=== PATIENT | male | born 1935 | race Caucasian/White ===

== ENCOUNTER 2018-02-10 13:50 | Inpatient (IN) | payer MEDICARE, SELFPAY ==
--- NOTE | 2018-02-10 13:14 | EKG12_ITS ---
Test Reason : WEAKNESS Blood Pressure : / mmHG Vent. Rate : 062 BPM Atrial Rate : 062 BPM P-R Int : 302 ms QRS Dur : 090 ms QT Int : 422 ms P-R-T Axes : 000 043 048 degrees QTc Int : 428 ms Sinus rhythm with 1st degree A-V block Septal infarct , age undetermined Abnormal ECG No previous ECGs available Confirmed by JOSAFAT RIVERA ([id number]), commissioning editor TAHMINA MIKE ([id number] on 02/25/2018 3:00:35 PM Referred By: Jhonny Franklin Confirmed By:JOSAFAT RIVERA
--- NOTE | 2018-02-10 14:15 | RAD_ITS ---
STUDY: X-RAY CHEST REASON FOR EXAM: Male, 82 years old. Shortness of breath TECHNIQUE: Single AP portable view of the chest. COMPARISON: None. FINDINGS: Diffuse mild interstitial edema. No consolidation or effusion. There is no demonstrated pleural abnormality. Sternal cerclage wires are present from a prior sternotomy. Mild cardiomegaly. Normal mediastinum and chapin. Normal visualized pulmonary arteries. Normal visualized aortic arch and descending thoracic aorta. Normal visualized thoracic spine. Normal visualized ribs, clavicles, and shoulders. There is no demonstrated abnormality of the visualized soft tissue structures of the upper abdomen. RAD/Chest 1 View (Portable) IMPRESSION: Vascular congestion throughout Electronically Signed: Mickey Spann DO at 14:52 EDT Tel , Service support ,
--- NOTE | 2018-02-10 17:40 | DT_ITS ---
This patient was seen during an EMR downtime February 04, 2018 - February 11, 2018. This patient may have a combination of paper and electronic documentation or all paper documentation. All documentation is viewable within the e-chart portion of [facility] for each patient visit.
[2018-02-11] MEDS: Heparin Injection 5,000 UNITS/ML Syringe 5000 UNITS SC ×3 (06:00→22:24)
[2018-02-11] MEDS: Aspirin 325 MG Tablet PO (08:00)
--- NOTE | 2018-02-11 09:21 | MRI_ITS ---
STUDY: MRI BRAIN WITHOUT CONTRAST REASON FOR EXAM: Male, 82 years old. rt sided weakness. TECHNIQUE: Standardized multiplanar fat and water weighted pulse sequences were obtained. COMPARISON: None. FINDINGS: There is mild cerebral atrophy with widening of the extra-axial spaces and ventricular dilatation. There are multiple white matter hyperintensities, distributed throughout the deep white matter tracts of the cerebral hemispheres, consistent with moderate chronic white matter ischemic changes. There is right cerebellar chronic lacunar infarct. There is a small area of right occipital encephalomalacia and gliosis, consistent with prior insult. There is approximately 1.5 cm right posterior and medial frontal lesion with T1 hyperintense signal suggesting intralesional hemorrhage. There is mild surrounding vasogenic edema. Additionally there is a 2.3 cm left anterior temporal lesion with minimal surrounding vasogenic edema Normal bilateral basal ganglia. Normal thalami. There is no extra-axial fluid accumulation. Normal flow voids within the major intracranial circulation suggesting patency by spin echo criteria. Normal sella turcica, pituitary gland, infundibular stalk, optic chiasm and hypothalamus. Normal tectal plate and pineal gland. Normal midbrain, morgan and medulla. Normal basal cisterns. Normal bilateral temporal bones. Normal bilateral internal auditory canals. MRI/Brain without Contrast IMPRESSION: Right frontal and left temporal lesions. Leading differential consideration is metastatic disease. Chronic right occipital infarct. N.B. : The above information has been verbally conveyed by Radha Olivera MD to [facility], [facility] Physician, on 02/11/2018 14:09:37 (ET). Electronically Signed: Radha Olivera MD at 13:06 EDT Tel , Service support , N.B. : The above information has been verbally conveyed by Radha Olivera MD to [facility], Covering Physician, on 02/11/2018 14:09:37 (ET).
[2018-02-11] MEDS: Lisinopril 10 MG Tablet 30 MG PO (10:00)
[2018-02-11] MEDS: Cyanocobalamin 500 MCG Tablet 1000 MCG PO (10:00)
[2018-02-11] MEDS: amLODIPine 5 MG Tablet PO (10:00)
[2018-02-11] MEDS: Atenolol 25 MG Tablet PO (10:00)
--- NOTE | 2018-02-11 10:38 | PCM.PN.HOSP ---
Subjective: Seen and examined The patient was admitted with hypoglycemia, recurrent fall and generalized weakness. He says he fell because of right knee gives out General: Alert, Oriented x3, Cooperative HEENT: Atraumatic, PERRLA, EOMI, Normocephalic Neck: Supple, No JVD, Negative Carotid Bruits Lungs: Clear to auscultation, Normal air movement, No rhonchi, No wheeze, No rales Cardiovascular: Regular rate, Regular Rhythm, Normal S1, Normal S2, No murmurs Abdomen: Bowel Sounds Present, Soft, Non Tender, Non-Distended Extremities: No edema, Capillary Refill Less than 3 Seconds Skin: No rashes, No breakdown Musculoskeletal: No Tenderness to Palpation of Joints or Extremities Neurological: Cranial nerves II-XII grossly intact Psych/Mental Status: Normal Affect, Appropriate Current Medications Amlodipine Besylate (Norvasc) 5 mg PO DAILY [facility] Aspirin (Aspirin) 325 mg PO DAILY@0800 [facility] Atenolol (Tenormin (Beta Jaden)) 25 mg PO DAILY [facility] Atorvastatin Calcium (Lipitor) 40 mg PO QHS [facility] Cyanocobalamin (Vitamin B12) 1,000 mcg PO DAILY [facility] Doxazosin Mesylate (Cardura) 2 mg PO QHS [facility] Heparin Sodium (Porcine) () 5,000 units SC Q8 [facility] Insulin Human Lispro (Humalog Kwikpen (Bkc)) 0 unit SQ ACHS [facility] PRN Reason: Protocol Lisinopril (Zestril) 30 mg PO DAILY [facility] Medical Necessity - Tobacco Use Smoking Status: Current every day smoker Assessment/Plan This 82-year-old gentleman who was admitted with generalized weakness and fall, blood sugar in the ER was 35 mg percent. Patient has type 1 diabetes mellitus. Vitals in the ER was stable. Patient has history of recurrent fall. 1. Hypoglycemia most probably from insulin with history of type 1 diabetes mellitus : In ED, Accu-Chek was 35 mg/dL. His blood sugar in BMP 137. Patient was on NPH and regular insulin at home. 2. Multiple brain lesions/mass: MRI brain was done for right-sided weakness. Is reported as 1.5 cm right posterior and medial frontal lesion with suspicion of intralesional hemorrhage with surrounding mild vasogenic edema. Another 2.3 cm left anterior temporal lesion with minimal surrounding vasogenic edema. Normal bilateral basal ganglia and thalami. Moderate chronic white matter ischemic changes. Right cerebellar chronic lacunar infarct. Neuro consult for multiple cerebral mass suspicion for metastatic lesion and evaluate the MRI brain. Patient has history of smoking since teenage and is still smoke but he states is not diagnosed COPD, probably has never PFT. Denies chronic symptoms as cough, sputum. Oncology consult, Dr. Mtz called. He ordered CT chest, abdomen and pelvis. Abdomen 3. 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 PT and OT and rehab placement. DVT prophylaxis: Heparin subcu and bilateral SCDs Clinical Impression(s) from Imaging Studies Brain MRI 02/11/18 09:21 IMPRESSION: Right frontal and left temporal lesions. Leading differential consideration is metastatic disease. Chronic right occipital infarct. Knee X-Ray 02/11/18 10:55 IMPRESSION: Joint effusion. Degenerative arthrosis. Code Visit Inpatient E&M: 55256 Subs Hosp L3
--- NOTE | 2018-02-11 10:43 | PN_ITS ---
Subjective: Seen and examined The patient was admitted with hypoglycemia, recurrent fall and generalized weakness. He says he fell because of right knee gives out General: Alert, Oriented x3, Cooperative HEENT: Atraumatic, PERRLA, EOMI, Normocephalic Neck: Supple, No JVD, Negative Carotid Bruits Lungs: Clear to auscultation, Normal air movement, No rhonchi, No wheeze, No rales Cardiovascular: Regular rate, Regular Rhythm, Normal S1, Normal S2, No murmurs Abdomen: Bowel Sounds Present, Soft, Non Tender, Non-Distended Extremities: No edema, Capillary Refill Less than 3 Seconds Skin: No rashes, No breakdown Musculoskeletal: No Tenderness to Palpation of Joints or Extremities Neurological: Cranial nerves II-XII grossly intact Psych/Mental Status: Normal Affect, Appropriate Current Medications Amlodipine Besylate (Norvasc) 5 mg PO DAILY [facility] Aspirin (Aspirin) 325 mg PO DAILY@0800 [facility] Atenolol (Tenormin (Beta Jaden)) 25 mg PO DAILY [facility] Atorvastatin Calcium (Lipitor) 40 mg PO QHS [facility] Cyanocobalamin (Vitamin B12) 1,000 mcg PO DAILY [facility] Doxazosin Mesylate (Cardura) 2 mg PO QHS [facility] Heparin Sodium (Porcine) () 5,000 units SC Q8 [facility] Insulin Human Lispro (Humalog Kwikpen (Bkc)) 0 unit SQ ACHS [facility] PRN Reason: Protocol Lisinopril (Zestril) 30 mg PO DAILY [facility] Medical Necessity - Tobacco Use Smoking Status: Current every day smoker Assessment/Plan This 82-year-old gentleman who was admitted with generalized weakness and fall, blood sugar in the ER was 35 mg percent. Patient has type 1 diabetes mellitus. Vitals in the ER was stable. Patient has history of recurrent fall. 1. Hypoglycemia most probably from insulin with history of type 1 diabetes mellitus : In ED, Accu-Chek was 35 mg/dL. His blood sugar in BMP 137. Patient was on NPH and regular insulin at home. 2. Multiple brain lesions/mass: MRI brain was done for right-sided weakness. Is reported as 1.5 cm right posterior and medial frontal lesion with suspicion of intralesional hemorrhage with surrounding mild vasogenic edema. Another 2.3 cm left anterior temporal lesion with minimal surrounding vasogenic edema. Normal bilateral basal ganglia and thalami. Moderate chronic white matter ischemic changes. Right cerebellar chronic lacunar infarct. Neuro consult for multiple cerebral mass suspicion for metastatic lesion and evaluate the MRI brain. Patient has history of smoking since teenage and is still smoke but he states is not diagnosed COPD, probably has never PFT. Denies chronic symptoms as cough, sputum. Oncology consult, Dr. Mtz called. He ordered CT chest, abdomen and pelvis. Abdomen 3. 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 PT and OT and rehab placement. DVT prophylaxis: Heparin subcu and bilateral SCDs Clinical Impression(s) from Imaging Studies Brain MRI 02/11/18 09:21 IMPRESSION: Right frontal and left temporal lesions. Leading differential consideration is metastatic disease. Chronic right occipital infarct. Knee X-Ray 02/11/18 10:55 IMPRESSION: Joint effusion. Degenerative arthrosis. Code Visit Inpatient E&M: 55343 Subs Hosp L3
--- NOTE | 2018-02-11 10:55 | RAD_ITS ---
STUDY: X-RAY - RIGHT KNEE REASON FOR EXAM: Male, 82 years old. No known recent injury. Pain in entire right knee off and on for a long time now. TECHNIQUE: 3 view(s) of the knee. COMPARISON: None. FINDINGS: Normal visualized distal femur. Normal visualized proximal tibia and fibula. Normal proximal tibiofibular articulation. There is moderate degenerative arthrosis of the medial femorotibial compartment. There is degenerative arthrosis of the lateral femorotibial compartment. There is degenerative arthrosis of the patellofemoral articulation. There are atherosclerotic calcifications. There is a joint effusion. RAD/Knee 1 or 2 Views IMPRESSION: Joint effusion. Degenerative arthrosis. Electronically Signed: Radha Olivera MD at 14:46 EDT Tel , Service support ,
[2018-02-11 11:40] LABS: Bedside Glucose 227 mg/dL (70-110)
[2018-02-11] MEDS: Insulin Lispro 100 UNIT/ML INSULN.PEN SQ ×2 (12:19→22:24)
--- NOTE | 2018-02-11 13:21 | CASEMGMT ---
Social Work Assessment Referral Date: 02/11/2018 Date of Assessment: 02/11/2018 Reason for consult: Pt is 82 years old and recent falls Informant: DEEPIKA Personal Status: Pt's daughter Sherine is requesting to speak to this worker. SW in to speak with pt's daughter and pt. SW introduced self and role at [facility]. Pt is alert and orientated x3. Pt states that he lives in a one story home with his . Pt states that there is a small step that he has to take to enter his home. Pt states that he was able to go up and down the step previously. Pt states that he was previously independent with ADLs. DME include walker and cane. Pt states that he would like to go to inpatient rehab at discharge. Pt's daughter states that pt's is currently in TCU and they would like pt to get more therapy than TCU is able to provide. SW explained that inpatient rehab requires pt to meet criteria to be accepted. Pt and pt's daughter states understanding. SW informed pt and pt's daughter that this worker will still send referral to inpatient rehab to see if they are able to accept. Pt and pt's daughter states understanding. Pt denied additional needs or concerns at this time. Substance Abuse Hx: Pt states that he currently still smokes cigarettes and smokes half a pack a day. Client denied additional substance abuse/use. Mental Health Hx: Pt denied. Pt's daughter Sherine met with this worker separately outside of pt's room. Sherien states that pt is unable to care for himself, pt will go weeks without showering, and she is unsure if pt is incontinent or not. SW provided support to pt's daughter. SW informed pt's daughter that a referral to inpatient rehab will be made but that this worker is unsure if pt will meet criteria to be accepted. Pt's daughter states understanding. Pt's daughter states that she would like to try [facility] or [facility] if inpatient rehab is unable to accept. SW informed pt's daughter that this worker is unsure if [facility] or [facility] accept pt's insurance but will check if needed. Pt's daughter states understanding. Pt's daughter states that she would like to complete POA/Living Will Paperwork. SW in to complete POA/Living Will Paperwork with pt and pt's daughter. POA/Living Will document completed. RN YANIRA Puri witnessed pt's signature as did this worker. Pt's daughter was provided original and copy of POA/Living Will and a copy was placed on pt's chart. SW placed a call to Brittany in TCU who is covering for inpatient rehab. Brittany states that initially pt doesn't meet inpatient rehab criteria but will look pt over and give this worker a call back. 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
--- NOTE | 2018-02-11 14:21 | CT_ITS ---
STUDY: CT CHEST WITH CONTRAST REASON FOR EXAM: Male, 82 years old. Abnormal brain MRI, evaluate for primary tumor RADIATION DOSAGE (If Supplied By Facility): CTDIvol = ( 25.81 ) mGy, DLP = ( 339.98 ) mGycm TECHNIQUE: Transaxial imaging was performed following intravenous administration of 100mL ml of Isovue 300 contrast material. Individualized dose optimization techniques were used for this CT. COMPARISON: None. FINDINGS: Median sternotomy wires. Scattered granulomatous lung changes. There is no demonstrated pleural abnormality. Normal heart and pericardium. Calcified mediastinal lymph nodes. Normal hilar regions. Normal enhanced pulmonary arteries. Vascular calcifications. Remote likely benign L1 compression deformity. Remote left rib trauma. Hepatic cyst. Calcified splenic granulomata. CT/Chest WITH Contrast IMPRESSION: No CT evidence of primary pulmonary malignancy. No metastatic lesions are seen. Electronically Signed: Reinaldo Vaz MD at 3:01 EDT Tel , Service support ,
--- NOTE | 2018-02-11 14:21 | CT_ITS ---
STUDY: CT ABDOMEN AND PELVIS WITH CONTRAST REASON FOR EXAM: Male, 82 years old. Abnormal brain MRI, evaluate for primary tumor RADIATION DOSAGE (If Supplied By Facility): CTDIvol = ( 25.81 ) mGy, DLP = ( 3399.98 ) mGycm TECHNIQUE: Transaxial images were obtained from the dome of the diaphragm to the symphysis pubis with oral contrast. 100mL ml of Isovue 300 contrast was administered. Sagittal and coronal images were reconstructed. Individualized dose optimization techniques were used for this CT. COMPARISON: None. FINDINGS: The visualized lung bases are unremarkable. The visualized portions of the heart are within normal limits. Median sternotomy wires. Field aorta PICC 3 Calcified liver granulomata. Multiple small hepatic cysts. The largest is a cyst in the right hepatic lobe measuring 2 cm. Multiple gallstones. There are multiple benign calcified granulomata of the spleen. Normal pancreas. Normal bilateral adrenal glands. Multiple bilateral renal cysts, the largest on the left measuring up to 10.6 cm. Normal visualized stomach. Normal small intestine. There are multiple colonic diverticula consistent with diverticulosis. The appendix is visualized and appears normal. 3.6 cm abdominal aortic aneurysm. Normal inferior vena cava. Normal retroperitoneum. Normal urinary bladder. Normal abdominal wall. Remote appearing and likely benign compression deformity of the L1 vertebral body with mild loss of height. Remote left rib trauma. CT/Abdomen/Pelvis WITH Contrast IMPRESSION: No primary or metastatic lesions are identified in the abdomen or pelvis. Small hepatic cysts. Electronically Signed: Reinaldo Vaz MD at 3:05 EDT Tel , Service support ,
[2018-02-11 14:50] VITALS: BP 180/65; PULSE 52; RESP 20; TEMP 36.9; O2SAT 99
[2018-02-11 17:21] LABS: CREATININE FINGERSTICK 1.3 mg/dL (0.70-1.30)
[2018-02-11 17:45] LABS: Bedside Glucose 163 mg/dL (70-110)
[2018-02-11 22:15] VITALS: BP 177/68; PULSE 57; RESP 20; TEMP 37.1; O2SAT 96
[2018-02-11] MEDS: Atorvastatin Calcium 40 MG Tablet PO (22:23)
[2018-02-11] MEDS: Doxazosin 1 MG Tablet 2 MG PO (22:23)
[2018-02-11 22:30] VITALS: PULSE 57; RESP 20; O2SAT 96
[2018-02-11 22:56] LABS: Bedside Glucose 238 mg/dL (70-110)
[2018-02-12 02:50] VITALS: BP 173/51; PULSE 60; RESP 20; TEMP 37.1; O2SAT 95
[2018-02-12 03:01] VITALS: BP 173/51; PULSE 60
[2018-02-12] MEDS: hydrALAZINE 20 MG/ML Vial IV (03:01)
[2018-02-12 03:11] VITALS: PULSE 60; RESP 20; O2SAT 95
[2018-02-12 06:12] LABS: Anion Gap 9 (5-15); BUN 26 mg/dL (7-18); BUN/Creat Ratio 22.2 RATIO (10-20); Calcium,Total 8.7 mg/dL (8.5-10.1); Chloride 107 mmol/L (98-107); Creatinine, Serum 1.17 mg/dL (0.70-1.30); EST Glomerular Filtration Rate 63 mL/min (>60); Est Glom Filt Rate - Afr Amer 77 mL/min (>60); Glucose 163 mg/dL (74-106); Potassium 4.4 mmol/L (3.5-5.1); Sodium Level 141 mmol/L (136-145)
[2018-02-12 06:45] VITALS: BP 120/41; PULSE 62; RESP 20; TEMP 36.6; O2SAT 98
[2018-02-12 07:05] LABS: Bedside Glucose 198 mg/dL (70-110)
[2018-02-12 08:21] LABS: Anion Gap 9 (5-15); BUN 25 mg/dL (7-18); BUN/Creat Ratio 21.6 RATIO (10-20); Calcium,Total 8.5 mg/dL (8.5-10.1); Chloride 110 mmol/L (98-107); Creatinine, Serum 1.16 mg/dL (0.70-1.30); EST Glomerular Filtration Rate 64 mL/min (>60); Est Glom Filt Rate - Afr Amer 78 mL/min (>60); Glucose 137 mg/dL (74-106); Potassium 4.6 mmol/L (3.5-5.1); Sodium Level 144 mmol/L (136-145)
[2018-02-12 08:50] VITALS: BP 121/57; PULSE 58; RESP 16; TEMP 36.7; O2SAT 98
[2018-02-12] MEDS: Lisinopril 10 MG Tablet 30 MG PO (08:56)
[2018-02-12] MEDS: amLODIPine 5 MG Tablet PO (08:56)
[2018-02-12] MEDS: Aspirin 325 MG Tablet PO (08:56)
[2018-02-12] MEDS: Cyanocobalamin 500 MCG Tablet 1000 MCG PO (08:56)
--- NOTE | 2018-02-12 08:56 | CASEMGMT ---
Social Work Note SW received message from Lovely at [facility] stating that they are not in network with pt's insurance [employer]. SW received a message from Brittany with inpatient rehab stating that she reviewed pt's PT evaluation and PT is recommending home. Brittany states that she can still submit for pre-cert for inpatient rehab but there is a good chance that pt may get denied. Brittany states that she could try TCU if pt and pt's daughter is agreeable. DEEPIKA placed a call to pt's daughter and left a message, updating her of this information. DEEPIKA placed a call to PT to confirm that the physical therapist meant to recommend Home at discharge on PT Evaluation. PT states that they will review pt's evaluation and update evaluation if needed. DEEPIKA placed a call to Brittany with inpatient rehab updating her that this worker placed a call to PT and they will review evaluation and that this worker placed to pt's daughter to inform her that pt may get denied for inpatient rehab and to confirm with pt's daughter discharge plans. DEEPIKA waiting for PT to review evaluation and to receive phone call from pt's daughter. Plan: TBD, Possibly inpatient rehab pending pre-cert [facility] REHABILITATION SUPERVISOR, COVERING MACHINE OPERATOR
[2018-02-12] MEDS: Atenolol 25 MG Tablet PO (08:58)
[2018-02-12 11:09] LABS: Hematocrit 38.8 % (40-54); Hemoglobin 12.9 g/dl (13.0-16.5); Mean Corp Hgb Conc 33.2 g/gl (32-36); Mean Corpuscular Hgb 30.6 pg (27.0-32.0); Mean Corpuscular Volume 91.9 fL (80-94); RBC Distribution Width CV 13.7 % (11.6-14.6); Red Blood Count 4.22 M/mm3 (4.6-6.2); White Blood Count 10.2 K/mm3 (4.4-11.0)
[2018-02-12 11:10] LABS: Absolute Lymphocyte Count 1.13 X10^3/ul (0.83-4.51); Absolute Neutrophil Count 8.1 X10^3/uL (2.0-7.7); Basophil# 0.01 X10^3/uL; Basophil% 0.1 % (0-1); Eosinophil# 0.09 X10^3/uL; Eosinophils% 0.9 % (0-5); Lymphocyte # 1.13 X10^3/ul (4.0); Lymphocyte % 11.1 % (19-41); Mean Platelet Vol. 10.2 fl (6.2-12.0); Monocyte% 7.9 % (0-10); Neutrophil # 8.11 X10^3/uL (2.7-7.7); Neutrophil % 79.8 % (47-70); POSITIVE COUNT NO; POSITIVE DIFFERENTIAL NO; POSITIVE MORPHOLOGY NO; Platelet Count 161 K/mm3 (150-450); RBC Distribution Width SD 45.4 fl (35.1-43.9)
--- NOTE | 2018-02-12 11:15 | CASEMGMT ---
Social Work Note PT changed their evaluation and note to reflect pt's need for further skilled therapy. DEEPIKA placed a call to Brittany whose covering for inpatient rehab and left her a message to update her that PT changed their notes and to submit for pre-cert. DEEPIKA will continue to follow along to assist with discharge planning. Plan: Inpatient rehab pending pre-cert [facility] OPERATIONS CONTROLLER, PRESENTATION TEAM MEMBER
[2018-02-12 11:54] LABS: Bacteria 0 SEEN /hpf (None Seen); Squamous Epithelial Cells - UA 0 SEEN /hpf (0-5)
[2018-02-12 12:30] LABS: Color, Urine Yellow (Yellow); Glucose, Dipstick NEGATIVE (Normal); Ketone-Dipstick Negative (Negative); Leukocyte Esterase-Dipstick Negative /ul (Negative); Mucous, Urine 2+ /hpf (<or=2+); Nitrite-Dipstick Negative (Negative); Occult Blood-Urine 10 /ul (Negative); Protein-Dipstick 30 mg/dl (Negative); Red Blood Cells-Urine 0-5 SEEN /hpf (0-5); Urine Bilirubin Dipstick Negative (Negative); Urine Clarity Clear (Clear); Urine Urobilinogen Normal (Normal); White Blood Cells 0-5 SEEN /hpf (0-5)
--- NOTE | 2018-02-12 12:45 | ONC.CONS.INP ---
Consult Referring Physician: Dr. Camelia Castaneda. Consult Results: Multiple Brain masses. Subjective Date of Service:: 02/12/18 Chief Complaint: For Management of multiple brain lesions. History of Present Illness: 82y.o.man was admitted with multiple falls and hypoglycemia. MRI of brain on 02/11/2018 showed L temporal lobe lesion and R occipital lobe. He denies headaches, dizziness, seizures or fever. Past Medical/Surgical History: HTN, CAD s/p CABG. Maternal Family History: Cancer - none. - Social History Smoking Status: Current every day smoker Alcohol: None Allergies/Adverse Reactions: Allergy/AdvReac Type Severity Reaction Status Date / Time Penicillins Allergy Swelling Verified 06/28/17 16:38 Review of Systems Constitutional:: Reports: Weakness. Denies: Fatigue, Fever, Sweats Cardiovascular:: Denies: Chest pain, Palpitations, Dyspnea on exertion, Orthopnea, PND, Shortness of breath Respiratory: Denies: Cough, Hemoptysis, Shortness of Breath, Wheezing Gastrointestinal:: Denies: Abdominal pain, Nausea, Vomiting, Diarrhea, Constipation, Hematochezia Genitourinary: Denies: Dysuria, Hematuria, 15, Flank pain Musculoskeletal:: Denies: Back pain, Myalgia, Arthralgia Skin: Denies: Rash, Skin Changes, Wounds Neurological:: Reports: Frequent falls. Denies: Headache, Dizziness, Visual changes, Tinnitus, Hearing loss Psychiatric: Denies: Anxiety, Depression, Homicidal Ideations, Suicidal Ideations Vital Signs Height 5 ft 8 in Weight: 92.1 kg Weight in Pounds 203.0 lbs Pulse Ox 98 Temperature 98.0 F Pulse Rate 58 Respiratory Rate 16 Blood Pressure [BP] 121/57 Blood Pressure 173/51 Blood Pressure Position [BP] Sitting - Physical Exam General: Alert, Oriented x3, No apparent distress HEENT: Atraumatic, PERRLA, EOMI, Normocephalic Oropharynx:: Dry mucosa Neck:: Supple, Trachea midline. Negative for: JVD, bilateral Cardiac:: Regular rate, Regular rhythm, Normal S1, Normal S2. Negative for: Murmur Lungs: Clear to auscultation, Excusion symmetrical. Negative for: Rhonchi, Wheezes Abdomen:: Bowel sounds x 4, Soft, Non-tender, Non-distended. Negative for: Hepatosplenomegaly Extremities:: Negative for: Edema, Calf tenderness Skin:: Lesions - multiple keratotic lesions back. Laboratory Data: Laboratory Tests 02/12/18 02/12/18 02/11/18 Range/Units 06:47 05:35 22:22 Sodium 141 (136-145) mmol/L Potassium 4.4 (3.5-5.1) mmol/L Chloride 107 (98-107) mmol/L Carbon Dioxide 25.0 (21.0-32.0) mmol/L Anion Gap 9 (5-15) BUN 26 H (7-18) mg/dL Creatinine 1.17 (0.70-1.30) mg/dL POC Creatinine (0.70-1.30) mg/dL POC Estimated GFR (eGFR) (>60) mL/min Est GFR (MDRD) Af Amer 77 (>60) mL/min Est GFR (MDRD) Non-Af 63 (>60) mL/min BUN/Creatinine Ratio 22.2 H (10-20) RATIO Glucose 163 H (74-106) mg/dL Calcium 8.7 (8.5-10.1) mg/dL Urine Color (Yellow) Urine Clarity (Clear) Urine pH (5.0 - 8.0) Ur Specific [place] (1.002-1.030) Urine Protein (Negative) mg/dl Urine Glucose (UA) (Normal) mg/dl Urine Ketones (Negative) mg/dl Urine Occult Blood (Negative) /ul Urine Nitrite (Negative) Urine Bilirubin (Negative) mg/dL Urine Urobilinogen (Normal) mg/dl Ur Leukocyte Esterase (Negative) /ul Urine RBC (0-5) /hpf Urine WBC (0-5) /hpf Ur Squamous Epith Cells (0-5) /hpf Urine Bacteria (None Seen) /hpf Urine Mucus (<or=2+) /hpf POC Glucose 198 H 238 H (70-110) mg/dL 02/11/18 02/11/18 02/10/18 Range/Units 17:40 17:16 18:10 Sodium (136-145) mmol/L Potassium (3.5-5.1) mmol/L Chloride (98-107) mmol/L Carbon Dioxide (21.0-32.0) mmol/L Anion Gap (5-15) BUN (7-18) mg/dL Creatinine (0.70-1.30) mg/dL POC Creatinine 1.3 (0.70-1.30) mg/dL POC Estimated GFR (eGFR) 58.0000 L (>60) mL/min Est GFR (MDRD) Af Amer (>60) mL/min Est GFR (MDRD) Non-Af (>60) mL/min BUN/Creatinine Ratio (10-20) RATIO Glucose (74-106) mg/dL Calcium (8.5-10.1) mg/dL Urine Color Yellow (Yellow) Urine Clarity Clear (Clear) Urine pH 6.0 (5.0 - 8.0) Ur Specific [place] 1.020 (1.002-1.030) Urine Protein 30 H (Negative) mg/dl Urine Glucose (UA) NEGATIVE (Normal) mg/dl Urine Ketones Negative (Negative) mg/dl Urine Occult Blood 10 H (Negative) /ul Urine Nitrite Negative (Negative) Urine Bilirubin Negative (Negative) mg/dL Urine Urobilinogen Normal (Normal) mg/dl Ur Leukocyte Esterase Negative (Negative) /ul Urine RBC 0-5 SEEN (0-5) /hpf Urine WBC 0-5 SEEN (0-5) /hpf Ur Squamous Epith Cells 0 SEEN (0-5) /hpf Urine Bacteria 0 SEEN (None Seen) /hpf Urine Mucus 2+ (<or=2+) /hpf POC Glucose 163 H (70-110) mg/dL Diagnostic Data: Diagnostic Data Brain MRI 02/11/18 09:21 IMPRESSION: Right frontal and left temporal lesions. Leading differential consideration is metastatic disease. Chronic right occipital infarct. N.B. : The above information has been verbally conveyed by Radha Olivera MD to [employer], Covering Physician, on 02/11/2018 14:09:37 (ET). Electronically Signed: Radha Olivera MD at 13:06 EDT Tel , Service support , N.B. : The above information has been verbally conveyed by Radha Olivera MD to [employer], Covering Physician, on 02/11/2018 14:09:37 (ET). Knee X-Ray 02/11/18 10:55 IMPRESSION: Joint effusion. Degenerative arthrosis. Electronically Signed: Radha Olivera MD at 14:46 EDT Tel , Service support , Abdomen/Pelvis CT 02/11/18 14:21 IMPRESSION: No primary or metastatic lesions are identified in the abdomen or pelvis. Small hepatic cysts. Electronically Signed: Reinaldo Vaz MD at 3:05 EDT Tel , Service support , Chest CT 02/11/18 14:21 IMPRESSION: No CT evidence of primary pulmonary malignancy. No metastatic lesions are seen. Electronically Signed: Reinaldo Vaz MD at 3:01 EDT Tel , Service support , Assessment and Plan Multiple thick wall circumferential lesions R and L lobes with no primary tumor on CT c/a/p. Diff. Diagnosis include Malignancy, abscess, infections including Parasitic diseases. Suggestions is to obtain Neurosurgery evaluation. Thanks. Medications: Prescriptions This Visit Medication Instructions Recorded Amlodipine [Norvasc] 5 mg PO DAILY 02/12/18 Aspirin 325 mg PO DAILY@0800 02/12/18 Atenolol 25 mg PO DAILY 02/12/18 Atorvastatin Calcium [Lipitor] 40 mg PO QHS 02/12/18 Cyanocobalamin (Vitamin B-12) 1,000 mcg PO DAILY 02/12/18 [Vitamin B-12] Insulin NPH Human [Humulin N Pen] 30 units SQ QHS 02/12/18 Insulin NPH Human [Humulin N Pen] 35 units SQ BREAKFAST 02/12/18 Insulin Regular, Human [Humulin R 15 unit SQ BREAKFAST 02/12/18 U-500 Kwikpen] Insulin Regular, Human [Humulin R 15 unit SQ DINNER 02/12/18 U-500 Kwikpen] Lisinopril [Zestril] 30 mg PO DAILY 02/12/18 Multivitamin [Multiple Vitamins] 1 each PO DAILY 02/12/18 Terazosin HCl 2 mg PO QHS 02/12/18 Primary Care Provider: [facility] Referring Provider: Jhonny Franklin MD - Problem List (1) Brain mass Status: Acute Code Visit Office Visits / Consults: [id number] IP Consult L5
[2018-02-12] MEDS: Insulin Lispro 100 UNIT/ML INSULN.PEN SQ (12:53)
--- NOTE | 2018-02-12 12:59 | CON.PCM_ITS ---
Consult Referring Physician: Dr. Camelia Castaneda. Consult Results: Multiple Brain masses. Subjective Date of Service:: 02/12/18 Chief Complaint: For Management of multiple brain lesions. History of Present Illness: 82y.o.man was admitted with multiple falls and hypoglycemia. MRI of brain on 07/2018 showed L temporal lobe lesion and R occipital lobe. He denies headaches , dizziness, seizures or fever. Past Medical/Surgical History: HTN, CAD s/p CABG. Maternal Family History: Cancer - none. - Social History Smoking Status: Current every day smoker Alcohol: None Allergies/Adverse Reactions: Allergy/AdvReac Type Severity Reaction Status Date / Time Penicillins Allergy Swelling Verified 06/28/17 16:38 Review of Systems Constitutional:: Reports: Weakness. Denies: Fatigue, Fever, Sweats Cardiovascular:: Denies: Chest pain, Palpitations, Dyspnea on exertion, Orthopnea, PND, Shortness of breath Respiratory: Denies: Cough, Hemoptysis, Shortness of Breath, Wheezing Gastrointestinal:: Denies: Abdominal pain, Nausea, Vomiting, Diarrhea, Constipation, Hematochezia Genitourinary: Denies: Dysuria, Hematuria, 15, Flank pain Musculoskeletal:: Denies: Back pain, Myalgia, Arthralgia Skin: Denies: Rash, Skin Changes, Wounds Neurological:: Reports: Frequent falls. Denies: Headache, Dizziness, Visual changes, Tinnitus, Hearing loss Psychiatric: Denies: Anxiety, Depression, Homicidal Ideations, Suicidal Ideations Vital Signs Height 5 ft 8 in Weight: 92.1 kg Weight in Pounds 203.0 lbs Pulse Ox 98 Temperature 98.0 F Pulse Rate 58 Respiratory Rate 16 Blood Pressure [BP] 121/57 Blood Pressure 173/51 Blood Pressure Position [BP] Sitting - Physical Exam General: Alert, Oriented x3, No apparent distress HEENT: Atraumatic, PERRLA, EOMI, Normocephalic Oropharynx:: Dry mucosa Neck:: Supple, Trachea midline. Negative for: JVD, bilateral Cardiac:: Regular rate, Regular rhythm, Normal S1, Normal S2. Negative for: Murmur Lungs: Clear to auscultation, Excusion symmetrical. Negative for: Rhonchi, Wheezes Abdomen:: Bowel sounds x 4, Soft, Non-tender, Non-distended. Negative for: Hepatosplenomegaly Extremities:: Negative for: Edema, Calf tenderness Skin:: Lesions - multiple keratotic lesions back. Laboratory Data: Laboratory Tests 3 02/12/18 02/12/18 02/11/18 Range/Units 06:47 05:35 22:22 Sodium 141 (136-145) mmol/L Potassium 4.4 (3.5-5.1) mmol/L Chloride 107 (98-107) mmol/L Carbon Dioxide 25.0 (21.0-32.0) mmol/L Anion Gap 9 (5-15) BUN 26 H (7-18) mg/dL Creatinine 1.17 (0.70-1.30) mg/dL POC Creatinine (0.70-1.30) mg/dL POC Estimated GFR (eGFR) (>60) mL/min Est GFR (MDRD) Af Amer 77 (>60) mL/min Est GFR (MDRD) Non-Af 63 (>60) mL/min BUN/Creatinine Ratio 22.2 H (10-20) RATIO Glucose 163 H (74-106) mg/dL Calcium 8.7 (8.5-10.1) mg/dL Urine Color (Yellow) Urine Clarity (Clear) Urine pH (5.0 - 8.0) Ur Specific [place] (1.002-1.030) Urine Protein (Negative) mg/dl Urine Glucose (UA) (Normal) mg/dl Urine Ketones (Negative) mg/dl Urine Occult Blood (Negative) /ul Urine Nitrite (Negative) Urine Bilirubin (Negative) mg/dL Urine Urobilinogen (Normal) mg/dl Ur Leukocyte Esterase (Negative) /ul Urine RBC (0-5) /hpf Urine WBC (0-5) /hpf Ur Squamous Epith Cells (0-5) /hpf Urine Bacteria (None Seen) /hpf Urine Mucus (<or=2+) /hpf POC Glucose 198 H 238 H (70-110) mg/dL 3 02/11/18 02/11/18 02/10/18 Range/Units 17:40 17:16 18:10 Sodium (136-145) mmol/L Potassium (3.5-5.1) mmol/L Chloride (98-107) mmol/L Carbon Dioxide (21.0-32.0) mmol/L Anion Gap (5-15) BUN (7-18) mg/dL Creatinine (0.70-1.30) mg/dL POC Creatinine 1.3 (0.70-1.30) mg/dL POC Estimated GFR (eGFR) 58.0000 L (>60) mL/min Est GFR (MDRD) Af Amer (>60) mL/min Est GFR (MDRD) Non-Af (>60) mL/min BUN/Creatinine Ratio (10-20) RATIO Glucose (74-106) mg/dL Calcium (8.5-10.1) mg/dL Urine Color Yellow (Yellow) Urine Clarity Clear (Clear) Urine pH 6.0 (5.0 - 8.0) Ur Specific [place] 1.020 (1.002-1.030) Urine Protein 30 H (Negative) mg/dl Urine Glucose (UA) NEGATIVE (Normal) mg/dl Urine Ketones Negative (Negative) mg/dl Urine Occult Blood 10 H (Negative) /ul Urine Nitrite Negative (Negative) Urine Bilirubin Negative (Negative) mg/dL Urine Urobilinogen Normal (Normal) mg/dl Ur Leukocyte Esterase Negative (Negative) /ul Urine RBC 0-5 SEEN (0-5) /hpf Urine WBC 0-5 SEEN (0-5) /hpf Ur Squamous Epith Cells 0 SEEN (0-5) /hpf Urine Bacteria 0 SEEN (None Seen) /hpf Urine Mucus 2+ (<or=2+) /hpf POC Glucose 163 H (70-110) mg/dL Diagnostic Data: Diagnostic Data Brain MRI 02/11/18 09:21 IMPRESSION: Right frontal and left temporal lesions. Leading differential consideration is metastatic disease. Chronic right occipital infarct. N.B. : The above information has been verbally conveyed by Radha Olivera MD to [facility], Covering Physician, on 02/11/2018 14:09:37 (ET). Electronically Signed: Radha Olivera MD at 13:06 EDT Tel , Service support , N.B. : The above information has been verbally conveyed by Radha Olivera MD to [employer], Covering Physician, on 02/11/2018 14:09:37 (ET). Knee X-Ray 02/11/18 10:55 IMPRESSION: Joint effusion. Degenerative arthrosis. Electronically Signed: Radha Olivera MD at 14:46 EDT Tel , Service support , Abdomen/Pelvis CT 02/11/18 14:21 IMPRESSION: No primary or metastatic lesions are identified in the abdomen or pelvis. Small hepatic cysts. Electronically Signed: Reinaldo Vaz MD at 3:05 EDT Tel , Service support , Chest CT 02/11/18 14:21 IMPRESSION: No CT evidence of primary pulmonary malignancy. No metastatic lesions are seen. Electronically Signed: Reinaldo Vaz MD at 3:01 EDT Tel , Service support , Assessment and Plan Multiple thick wall circumferential lesions R and L lobes with no primary tumor on CT c/a/p. Diff. Diagnosis include Malignancy, abscess, infections including Parasitic diseases. Suggestions is to obtain Neurosurgery evaluation. Thanks. Medications: Prescriptions This Visit Medication Instructions Recorded Amlodipine [Norvasc] 5 mg PO DAILY 02/12/18 Aspirin 325 mg PO DAILY@0800 02/12/18 Atenolol 25 mg PO DAILY 02/12/18 Atorvastatin Calcium [Lipitor] 40 mg PO QHS 02/12/18 Cyanocobalamin (Vitamin B-12) 1,000 mcg PO DAILY 02/12/18 [Vitamin B-12] Insulin NPH Human [Humulin N Pen] 30 units SQ QHS 02/12/18 Insulin NPH Human [Humulin N Pen] 35 units SQ BREAKFAST 02/12/18 Insulin Regular, Human [Humulin R 15 unit SQ BREAKFAST 02/12/18 U-500 Kwikpen] Insulin Regular, Human [Humulin R 15 unit SQ DINNER 02/12/18 U-500 Kwikpen] Lisinopril [Zestril] 30 mg PO DAILY 02/12/18 Multivitamin [Multiple Vitamins] 1 each PO DAILY 02/12/18 Terazosin HCl 2 mg PO QHS 02/12/18 Primary Care Provider: [facility] Referring Provider: Jhonny Franklin MD - Problem List (1) Brain mass Status: Acute Code Visit Office Visits / Consults: [id number] IP Consult L5
[2018-02-12 13:01] LABS: Bedside Glucose 220 mg/dL (70-110)
--- NOTE | 2018-02-12 13:19 | CASEMGMT ---
Tertiary hospitals in network with [employer] are: [facility], [facility], and [facility].
--- NOTE | 2018-02-12 13:21 | CASEMGMT ---
Social Work Note Pt is being transferred to different hospital. DEEPIKA placed a call to Brittany in inpatient rehab updating her that pt is being transferred and will not need pre-cert for inpatient rehab. Brittany states understanding. Plan: Pt is being transferred to different hospital. Vicenta Esquivel [employer] ARCHITECT, BROOM WORKER
--- NOTE | 2018-02-12 14:32 | DS.PCM_ITS ---
Discharge Date and Diagnosis - Problem List Patient Problems: Active and Suspected Problems Brain lesion (Acute) Brain mass (Acute) Date of Admission: 02/10/18 Date of Discharge: 02/12/18 - Primary Discharge Diagnosis Active and Suspected Problems Brain lesion (Acute) Brain mass (Acute) 1. Hypoglycemia most probably from insulin with history of type 1 diabetes mellitus : Resolved 2. Multiple brain lesions/mass; exact diagnosis unclear but possible differentials are metastatic lesion of unknown primary/brain abscess/ toxoplasmosis: 3. 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 Hospital Course and Treatment Summary of Care Provided: [] This 82-year-old gentleman who was admitted with generalized weakness and fall, blood sugar in the ER was 35 mg percent. Patient has type 1 diabetes mellitus. Vitals in the ER was stable. Patient has history of recurrent fall. 1. Hypoglycemia most probably from insulin with history of type 1 diabetes mellitus : In ED, Accu-Chek was 35 mg/dL. His blood sugar in BMP 137. Patient was on NPH and regular insulin at home. 2. Multiple brain lesions/mass; exact diagnosis unclear but possible differentials are metastatic lesion of unknown primary/brain abscess/ toxoplasmosis: MRI brain was done for right-sided weakness. It is reported as 1.5 cm right posterior and medial frontal lesion with suspicion of intralesional hemorrhage/possible air-fluid level on imaging with surrounding mild vasogenic edema. Another 2.3 cm left anterior temporal lesion with minimal surrounding vasogenic edema. Normal bilateral basal ganglia and thalami. Moderate chronic white matter ischemic changes. Right cerebellar chronic lacunar infarct. Discussed with the neurologist, Dr. Byrd regarding multiple cerebral mass suspicion for metastatic lesion. He suggested him on consult and neurosurgery opinion. Patient has history of smoking since teenage and is still smoke but he states is not diagnosed COPD, probably has never PFT. Denies chronic symptoms as cough, sputum. Oncology consult, Dr. Mtz was done and discussed with him. He ordered CT chest, abdomen and pelvis. CT chest abdomen and pelvis does not show any primary or metastatic lesion. Further said brain mass, particularly the right frontal lesion is suspicious of air-fluid level with thick wall and possible differentials include brain abscess , primary TECHNICAL INSTRUCTOR lymphoma or metastatic lesions. The findings were discussed with patient and her daughter Sherine Butts, [id number] and explained the MRI findings. Daughter agreed for transfer to [facility]. The above findings was discussed with the current [facility] transfer line. Patient is accepted by hospitalist Dr. Rocha and Neurosurgeon, Dr. Moreland will be consulted. Patient is in the process of transfer to [facility]. 3. 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 DVT prophylaxis: Was started on heparin subcut and bilateral SCDs. Today heparin subcu was discontinued as the patient had small subcutaneous bruise/ hematoma at the site of heparin injection to SCDs Laboratory Results 02/10/18 14:00: Sodium 144, Potassium 4.6, Chloride 110 H, Carbon Dioxide 25.0, Anion Gap 9, BUN 25 H, Creatinine 1.16, Est GFR (MDRD) Af Amer 78, Est GFR (MDRD ) Non-Af 64, BUN/Creatinine Ratio 21.6 H, Glucose 137 H, Calcium 8.5, Troponin I < 0.015 02/10/18 14:25: WBC 10.2, RBC 4.22 L, Hgb 12.9 L, Hct 38.8 L, MCV 91.9, MCH 30.6 , MCHC 33.2, RDW 13.7, RDW Differential 45.4 H, Plt Count 161, MPV 10.2, Immature Gran % (Auto) 0.200, Neut % (Auto) 79.8 H, Lymph % (Auto) 11.1 L, [place] % (Auto) 7.9, Eos % (Auto) 0.9, Baso % (Auto) 0.1, Absolute Neuts (auto) 8.1 H, Absolute Lymphs (auto) 1.13, Total Counted Not Reportable 02/10/18 18:10: Urine Color Yellow, Urine Clarity Clear, Urine pH 6.0, Ur Specific [place] 1.020, Urine Protein 30 H, Urine Glucose (UA) NEGATIVE, Urine Ketones Negative, Urine Occult Blood 10 H, Urine Nitrite Negative, Urine Bilirubin Negative, Urine Urobilinogen Normal, Ur Leukocyte Esterase Negative, Urine RBC 0-5 SEEN, Urine WBC 0-5 SEEN, Ur Squamous Epith Cells 0 SEEN, Urine Bacteria 0 SEEN, Urine Mucus 2+ 02/11/18 17:16: POC Creatinine 1.3, POC Estimated GFR (eGFR) 58.0000 L 02/11/18 17:40: POC Glucose 163 H 02/11/18 22:22: POC Glucose 238 H 02/12/18 05:35: Sodium 141, Potassium 4.4, Chloride 107, Carbon Dioxide 25.0, Anion Gap 9, BUN 26 H, Creatinine 1.17, Est GFR (MDRD) Af Amer 77, Est GFR (MDRD ) Non-Af 63, BUN/Creatinine Ratio 22.2 H, Glucose 163 H, Calcium 8.7 02/12/18 06:47: POC Glucose 198 H 02/12/18 12:52: POC Glucose 220 H Clinical Impression(s) from Imaging Studies Chest X-Ray 02/10/18 14:15 IMPRESSION: Vascular congestion throughout Electronically Signed: Mickey Spann DO at 14:52 EDT Tel , Service support , Brain MRI 02/11/18 09:21 IMPRESSION: Right frontal and left temporal lesions. Leading differential consideration is metastatic disease. Chronic right occipital infarct. Knee X-Ray 02/11/18 10:55 IMPRESSION: Joint effusion. Degenerative arthrosis. Abdomen/Pelvis CT 02/11/18 14:21 IMPRESSION: No primary or metastatic lesions are identified in the abdomen or pelvis. Small hepatic cysts. Chest CT 02/11/18 14:21 IMPRESSION: No CT evidence of primary pulmonary malignancy. No metastatic lesions are seen Home Medications: Medications to take at Discharge Amlodipine [Norvasc] 5 mg PO DAILY 02/12/18 Aspirin 325 mg PO DAILY@0800 02/12/18 Atenolol 25 mg PO DAILY 02/12/18 Atorvastatin Calcium [Lipitor] 40 mg PO QHS 02/12/18 Cyanocobalamin (Vitamin B-12) [Vitamin B-12] 1,000 mcg PO DAILY 02/12/18 Insulin NPH Human [Humulin N Pen] 30 units SQ QHS 02/12/18 Insulin NPH Human [Humulin N Pen] 35 units SQ BREAKFAST 02/12/18 Insulin Regular, Human [Humulin R U-500 Kwikpen] 15 unit SQ BREAKFAST 02/12/18 Insulin Regular, Human [Humulin R U-500 Kwikpen] 15 unit SQ DINNER 02/12/18 Lisinopril [Zestril] 30 mg PO DAILY 02/12/18 Multivitamin [Multiple Vitamins] 1 each PO DAILY 02/12/18 Terazosin HCl 2 mg PO QHS 02/12/18 [facility] [Primary Care Provider] - Medical Necessity - Tobacco Use Smoking Status: Current every day smoker Meaningful Use Info Meaningful Use Diagnoses (Choose all that apply): None applicable Code Visit Inpatient E&M: 42240 Disch Hosp
[2018-02-12 15:04] VITALS: BP 130/59; PULSE 50; RESP 18; TEMP 36.8; O2SAT 97
[2018-02-19 15:39] LABS: Bedside Glucose 212 mg/dL (70-110)
[2018-02-19 15:41] LABS: Bedside Glucose 216 mg/dL (70-110)
[2018-02-19 15:51] LABS: Bedside Glucose 112 mg/dL (70-110)
== END 2018-02-12 17:03 | disposition short-term general hospital (02) | DRG 639 ==
LOC: ED 18:19 → MS3 02-11 07:26
PROVIDERS: Admitting Provider Internal Medicine; Emergency Provider Emergency Medicine; Visit Provider Internal Medicine
DX: E10.649 Type 1 diabetes mellitus with hypoglycemia without coma (principal); R62.7 Adult failure to thrive; R22.0 Localized swelling, mass and lump, head; F17.200 Nicotine dependence, unspecified, uncomplicated; I25.10 Atherosclerotic heart disease of native coronary artery without angina pectoris; Z95.1 Presence of aortocoronary bypass graft; E10.22 Type 1 diabetes mellitus with diabetic chronic kidney disease; I12.9 Hypertensive chronic kidney disease with stage 1 through stage 4 chronic kidney disease, or unspecified chronic kidney disease; N18.9 Chronic kidney disease, unspecified; N40.0 Benign prostatic hyperplasia without lower urinary tract symptoms; E53.8 Deficiency of other specified B group vitamins; I71.4 Abdominal aortic aneurysm, without rupture
CPT/HCPCS: 36415; 70551; 71045; 71260; 73560; 74177; 80048; 81001; 82962; 84484; 85025; 93005; 97110; 97116; 97161; 97166; 97530; Q9967; A4216